=== PATIENT | male | born 1965 | race Caucasian/White ===

== ENCOUNTER 2019-11-21 16:11 | Outpatient (CLI) | payer OTHER, SELFPAY ==
--- NOTE | ~2019-11-21 | US_ITS ---
EXAMINATION: US carotid duplex BI DATE: 11/21/2019 16:47 INDICATION: Carotid bruit. TECHNIQUE: Grayscale, color Doppler, and pulsed Doppler images of the cervical carotid arteries were obtained. The degree of vessel stenosis is placed in one of the following categories: normal, <50%, 5 0-69%, >=70% but less than near-occlusion, near-occlusion, or total occlusion. Note that percent sten osis relative to normal distal artery lumen diameter is indirectly measured from velocity measurement s as described by Rudy, et al. Radiology 2003; [id number]. COMPARISON: None. FINDINGS: RIGHT: The right common carotid artery (CCA) peak systolic velocity (PSV) is 101 cm/s. The right internal ca rotid artery (ICA) PSV is 80 cm/s. The right ICA end-diastolic velocity (EDV) is 35 cm/s. The right I CA/CCA PSV ratio is 0.8. Grayscale and color Doppler images yield an estimate of <50% diameter reduct ion from plaque in the ICA. There is antegrade flow in the right vertebral artery. LEFT: The left CCA PSV is 147 cm/s. The left ICA PSV is 66 cm/s. The left ICA EDV is 27 cm/s. The left ICA/ CCA PSV ratio is 0.5. Grayscale and color Doppler images yield an estimate of <50% diameter reduction from plaque in the ICA. There is antegrade flow in the left vertebral artery. IMPRESSION: 1. <50% stenosis in the right internal carotid artery. 2. <50% stenosis in the left internal carotid artery. Reviewed, dictated and finalized at location A.
== END 2019-11-21 16:12 | disposition home or self-care (01) ==
PROVIDERS: PCP Family Medicine; Visit Provider Family Medicine
DX: R09.89 Other specified symptoms and signs involving the circulatory and respiratory systems (principal); I65.23 Occlusion and stenosis of bilateral carotid arteries
CPT/HCPCS: 93880

== ENCOUNTER 2022-03-10 11:03 | Day surgery (SDC) | payer OTHER, SELFPAY ==
[2022-01-28 12:00] VITALS: BMI 30.8
[2022-02-25 11:28] VITALS: BMI 30.7
--- NOTE | 2022-03-07 13:46 | PM.HPGS ---
History of Present Illness History of Present Illness Consent: Risks, benefits, and alternatives have been discussed and questions answered. Patient agrees to proceed with procedure. Chief complaint: History of colon polyp Narrative: Al Ro is a 56 year old male was referred for colon cancer screening. He had 1 polyp removed at the time of his last colonoscopy 7 years ago. Review of Systems Review of Systems: All systems reviewed & are unremarkable except as noted in HPI and below PMFSH Past Medical History Medical History Erectile dysfunction mild History of blood clots Hyperlipidemia Hypertension Lumbar pain Rash during summer Surgical History Surgical History History of hernia surgery History of rotator cuff surgery left - 10/04/2014 History of shoulder surgery History of vasectomy Family History Family History Mother Diabetes mellitus Family history of pancreatic cancer Social History Social History Smoking status: Never smoker Second hand tobacco smoke exposure: Yes Alcohol intake: current Drinks per week: 6 Alcohol use details: Occasional Substance use: never Substance use type: does not use Living arrangements: with family Gender identity (if verbalized by the patient): Male Sexual Orientation (if Verbalized by the Patient): Straight or Heterosexual Spiritual care concerns: No Agree to blood products: Yes Meds Home Medications and Allergies Home Medications Medication Instructions Recorded Confirmed Type diclofenac sodium 75 mg 75 mg PO BID PRN pain #60 tabs 11/25/21 03/10/22 Rx tablet,delayed release tizanidine 2 mg tablet 2 mg PO TID PRN muscle spasticity 11/25/21 03/10/22 Rx #60 tabs Allergies Allergy/AdvReac Type Severity Reaction Status Date / Time No Known Allergies Allergy Verified 03/10/22 11:59 Exam Const: General: alert Orientation/consciousness: patient oriented x3 Resp: Auscultation: clear to auscultation bilaterally Cardio: Rhythm: regular rhythm GI: GI Palp: Yes Soft to palpation and No Tenderness to palpation present (GI) Neuro: General: patient oriented x3 Assessment and Plan Assessment and plan (1) Colon cancer screening: Code(s): Z12.11 - Encounter for screening for malignant neoplasm of colon Status: Acute Assessment and Plan: Colonoscopy with possible biopsy or polypectomy or cautery or injection of substances.
[2022-03-10 11:55] VITALS: BP 163/107; PULSE 62; RESP 20; TEMP 36.9; O2SAT 98
--- NOTE | 2022-03-10 12:16 | P.PNAN_ITS ---
Anes - Initial Pre Proc Eval Procedure: Operation Date: 03/10/22 13:00 Proposed Procedures p Screening Colonoscopy - Daniel Aguirre MD Date/Time: 03/10/22 12:16 Surgeon: Daniel Aguirre MD Pre Op Diagnosis: History of colon polyp Patient Data Age: 56 Gender: M Height: 1.78 m Weight: 96.5 kg Last Vital Signs Temp 36.9 C 03/10/22 11:55 Pulse 62 03/10/22 11:55 Resp 20 03/10/22 11:55 BP 163/107 H 03/10/22 11:55 Pulse Ox 98 03/10/22 11:55 O2 Del Method Room Air 03/10/22 11:55 Allergies Allergy/AdvReac Type Severity Reaction Status Date / Time No Known Allergies Allergy Verified 03/10/22 11:59 Home Medications Medication Instructions Recorded Confirmed Type diclofenac sodium 75 mg 75 mg PO BID PRN pain #60 tabs 11/25/21 03/10/22 Rx tablet,delayed release tizanidine 2 mg tablet 2 mg PO TID PRN muscle spasticity 11/25/21 03/10/22 Rx #60 tabs Patient hx anesthesia problems: none Family hx anesthesia problems: none Results Review: All pre-operative results and documents have been reviewed as part of the pre- operative evaluation. [facility] Past Medical History Medical History Erectile dysfunction mild History of blood clots Hyperlipidemia Hypertension Lumbar pain Rash during summer Surgical History Surgical History History of hernia surgery History of rotator cuff surgery left - 10/04/2014 History of shoulder surgery History of vasectomy Family History Family History Mother Diabetes mellitus Family history of pancreatic cancer Social History Social History Smoking status: Never smoker Second hand tobacco smoke exposure: Yes Alcohol intake: current Drinks per week: 6 Alcohol use details: Occasional Substance use: never Substance use type: does not use Living arrangements: with family Gender identity (if verbalized by the patient): Male Sexual Orientation (if Verbalized by the Patient): Straight or Heterosexual Spiritual care concerns: No Agree to blood products: Yes Anes - Eval Final PreProcedure Day of Procedure 03/10/22 12:16 Patient weight: obese Heart: regular rate and rhythm Lungs: clear to auscultation Airway: Mallampati scale class II Neurological: alert and oriented Last oral intake: >/= 8 hours ASA classification: III Emergent: no Anesthetic plan: proceed Anesthesia type and monitoring: general GIVS and standard monitoring Results Review: All pre-operative results and documents have been reviewed as part of the pre-operative evaluation. Informed Consent: The patient's anesthetic plan and its attendant risks and benefits were discussed with the patient/family/POA. Questions were solicited and answers provided to the satisfaction of the patient/family/POA.
[2022-03-10] MEDS: LACTATED RINGERS 1,000 ML 150 ML IV CONT (12:19)
[2022-03-10 13:01] VITALS: BP 128/86; PULSE 64; RESP 16; O2SAT 95
[2022-03-10 13:11] VITALS: BP 150/93; PULSE 71; RESP 18; O2SAT 99
--- NOTE | 2022-03-10 13:19 | WPDANESPN ---
Anes - Prog Note Post-Op Date/Time: 03/10/22 13:19 Cardiovascular status: normal Respiratory status: normal Airway patency: baseline Mental status: baseline Post-Op hydration status: normal Vital Signs: Last Vital Signs Temp 36.9 C 03/10/22 11:55 Pulse 71 03/10/22 13:11 Resp 18 03/10/22 13:11 BP 150/93 H 03/10/22 13:11 Pulse Ox 99 03/10/22 13:11 O2 Del Method Room Air 03/10/22 13:11 Pain Score (VAS): 0 I/O: Intake & Output 03/09/22 03/10/22 03/10/22 23:59 07:59 15:59 Intake Total 318 Balance 318 Patient Feedback: Patient satisfied with anesthetic care.
[2022-03-10 13:21] VITALS: BP 146/95; PULSE 56; RESP 20; O2SAT 99
== END 2022-03-10 13:36 | disposition home or self-care (01) ==
PROVIDERS: Visit Provider Internal Medicine Gastroenterology
PROC: 0DJD8ZZ Inspection of Lower Intestinal Tract, Via Natural or Artificial Opening Endoscopic (ICD-10-PCS; CPT 45378; principal; 2022-03-10 13:00)
DX: Z12.11 Encounter for screening for malignant neoplasm of colon (principal)
CPT/HCPCS: 45378

== ENCOUNTER 2022-10-29 09:13 | Outpatient (CLI) | payer OTHER, SELFPAY ==
--- NOTE | ~2022-10-29 | XR_ITS ---
EXAM: XR cervical spine 4-5V DATE: 10/29/2022 09:42 HISTORY: M54.2 - Cervicalgia, RIGHT SIDED NECK PAIN . COMPARISON: None available. FINDINGS: Craniocervical association and atlantoaxial joint are aligned. No prevertebral soft tissue swelling. Vertebral bodies are aligned. Cervical straightening which can occur with positioning or m uscle spasm. Vertebral body heights are maintained. Normal disc spaces. Mild disc space narrowing and marginal osteophytosis at C5-6 and C6/7. Mild multilevel facet sclerosis/hypertrophy. IMPRESSION: Mild lower cervical spine degenerative disc disease. Mild multilevel facet arthropathy. Reviewed, dictated and finalized at location K. IMPRESSION: Mild lower cervical spine degenerative disc disease. Mild multileve l facet arthropathy.
--- NOTE | 2022-10-29 09:36 | ECG_ITS ---
Measurements Intervals [place] Rate: 54 P: 41 FL: 163 QRS: 29 QRSD: 88 T: 57 QT: 394 QTc: 376 Interpretive Statements SINUS BRADYCARDIA BASELINE WANDER- V1-V2 BORDERLINE ECG NO PREVIOUS ECG AVAILABLE FOR COMPARISON Electronically Signed On 10-29-2022 9:44:44 CDT by Raúl Duran D.O.
== END 2022-10-29 09:14 | disposition home or self-care (01) ==
PROVIDERS: PCP Family Medicine; Visit Provider Physician Assistant Medical
DX: R07.9 Chest pain, unspecified (principal); M54.2 Cervicalgia
CPT/HCPCS: 72050; 93005